=== PATIENT | male | born 1970 | race Caucasian/White ===

== ENCOUNTER → 2017-08-15 | Outpatient (CLI) | payer OTHER ==
[~2017-08-15] MED LIST: CELEBREX50 MG PO; TRAMADOL HCL50 MG PO; ZANAFLEX2 M1 PO; ZOFRAN4 MG PO
== END | disposition home or self-care (01) ==
LOC: NUC 11:15
DX: R10.30 Lower abdominal pain, unspecified (principal); R07.89 Other chest pain
CPT/HCPCS: 78226; A9537